=== PATIENT | female | born 1955 | race Caucasian/White ===

== ENCOUNTER 2017-05-06 22:12 | Emergency (ER) | payer OTHER ==
[~2017-05-06] VITALS: Ht 149.9 cm; Wt 57.2 kg
[2017-05-06 23:43] LABS: BASOPHIL % 0.6 % (0-2); RED CELL DISTRIBUTION WIDTH 13.8 % (11.5-14.5)
[2017-05-06 23:44] LABS: PLATELET COUNT 112 x10^3mcL (130-400)
[2017-05-06 23:50] LABS: CALCIUM 9.1 mg/dL (8.5-10.1); CARBON DIOXIDE 31.5 mmol/L (21-32); CHLORIDE SERUM 103 mmol/L (98-107); CREATININE SERUM 0.6 mg/dL (0.6-1.0); GFR1 > 60 mL/min; GLUCOSE SERUM 107 mg/dL (74-106); POTASSIUM SERUM 4.4 mmol/L (3.5-5.1); SODIUM SERUM 141 mmol/L (136-145)
[2017-05-06 23:55] LABS: ALBUMIN 4.1 g/dL (3.4-5.0); ALKALINE PHOSPHATASE 155 U/L (46-116); ALT/SGPT 72 U/L (14-59); AST/SGOT 31 U/L (15-37); BILIRUBIN TOTAL 0.4 mg/dL (0.20-1.00); LIPASE 147 IU/L (73-393); TOTAL PROTEIN, SERUM 7.2 g/dL (6.4-8.2)
[2017-05-07 00:46] VITALS: BP 121/70
== END 2017-05-07 00:53 | disposition home or self-care (01) ==
LOC: ED 22:12
PROVIDERS: Emergency Medicine
DX: R10.13 Epigastric pain (principal); I95.9 Hypotension, unspecified
CPT/HCPCS: 36415; Q0092; Q0162

== ENCOUNTER 2019-08-05 20:22 | Emergency (ER) | payer OTHER ==
[~2019-08-05] VITALS: Ht 149.9 cm; Wt 52.2 kg
[2019-08-05 20:24] VITALS: Ht 149.9 cm; Wt 52.2 kg
[2019-08-05 21:49] VITALS: BP 155/71
== END 2019-08-05 21:49 | disposition home or self-care (01) ==
LOC: ED 20:22
DX: R21 Rash and other nonspecific skin eruption (principal); K08.89 Other specified disorders of teeth and supporting structures; Z98.890 Other specified postprocedural states